=== PATIENT | female | born 1990 | race American Indian/Alaskan Native ===

== ENCOUNTER 2017-02-18 21:57 | Emergency (ER) | payer OTHER ==
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
[2017-02-19] MEDS ORDERED: TRIPLE ANTIBIOTIC TP ONE (02:58)
[2017-02-19] MEDS ORDERED: NORCO 5/325 PO ONE (03:00)
[2017-02-19 04:08] VITALS: BP 134/77
== END 2017-02-19 04:08 | disposition home or self-care (01) ==
LOC: ED 21:57
DX: S60.021A Contusion of right index finger without damage to nail, initial encounter (principal); S60.011A Contusion of right thumb without damage to nail, initial encounter; W23.0XXA Caught, crushed, jammed, or pinched between moving objects, initial encounter; Y93.9 Activity, unspecified; Y99.9 Unspecified external cause status; Y92.481 Parking lot as the place of occurrence of the external cause
CPT/HCPCS: 99283; A6250